=== PATIENT | female | born 1950 | race Caucasian/White ===

== ENCOUNTER 2017-12-06 12:44 | Emergency (ER) | payer OTHER ==
[~2017-12-06] VITALS: Ht 157.5 cm; Wt 93.4 kg
--- NOTE | ~2017-12-06 | EKG ---
[facility] [place] [address] ELECTROCARDIOGRAM REPORT Name: JUNO MOSS Room #: PRE M.R.#: [id number] Admission: Attend Phys: Discharge: Date of : 46 Report #: [id number] THIS REPORT FOR: //name// [facility] ED Test Date: 2017-12-06 Test Time: 13:10:12 Pat Name: JUNO MOSS Department: Room: Gender: F Branch Account Manager: ZAHIRA : 1950 Requested By: Sam Benton Order Number: [id number] MD: Measurements Intervals [place] Rate: 69 P: 39 SC: 130 QRS: 3 QRSD: 97 T: 9 QT: 413 QTc: 443 Interpretive Statements Sinus rhythm Nonspecific T abnormalities, anterior leads No previous ECG available for comparison [email or web address] By: 1310 1310 Annie Valencia MD /EPI
--- NOTE | ~2017-12-06 | EKG ---
[address] [address] [email or web address] [address] ELECTROCARDIOGRAM REPORT Name: JUNO MOSS Room #: DEP JAMES Aguiar#: [id number] Admission: 12/06/17 Attend Phys: Discharge: 12/06/17 Date of : 46 Report #: [id number] THIS REPORT FOR: //name// [facility] ED Test Date: 2017-12-06 Test Time: 13:10:12 Pat Name: JUNO MOSS Department: Room: Gender: F Conference And Event Organiser: TSTORCK : 1950 Requested By: Sam Benton Order Number: [id number] MD: Maikel Omalley Measurements Intervals [place] Rate: 69 P: 39 [place]: 130 QRS: 3 QRSD: 97 T: 9 QT: 413 QTc: 443 Interpretive Statements Sinus rhythm Nonspecific T abnormalities, anterior leads Compared to ECG 10/19/2013 00:07:46 no significant change was found Electronically Signed On 12-06-2017 17:06:32 CDT by Maikel Omalley [email or web address] <ELECTRONICALLY SIGNED> By: Maikel Omalley MD, [facility] 12/06/17 1706 1310 1310 Maikel Omalley MD, FACC /EPI
[~2017-12-06 12:44] MED LIST: ACETAMINOPHEN500 M1 PO; AUGMENTIN 875875 MG PO; FELDENE20 MG PO; GNP HEADACHE P1 EACH PO; IBUPROFEN200 MG PO; MELATONIN1 MG PO; SUDOGEST PE10 MG PO; TRIAMCINOLONE A80 G2
[2017-12-06 13:43] LABS: ABSOLUTE NEUTROPHILS 2.8 thou/uL (1.4-8.2); BASOPHILS 1.2 % (0.0-2.0); EOSINOPHILS 5.3 % (0.0-3.0); HEMATOCRIT 36.9 % (37.0-47.0); HEMOGLOBIN 12.4 gm/dL (12.0-15.0); LYMPHOCYTES 33.6 % (24.0-44.0); MCH 29.2 pg (26.0-34.0); MCHC 33.6 g/dL (28.0-37.0); MCV 86.8 fL (80.0-100.0); MONOCYTES 6.9 % (1.0-8.0); PLATELET COUNT 139 thou/uL (150-400); RBC 4.25 mil/uL (4.20-5.00); RDW 14.2 % (10.5-14.5); WBC 5.4 thou/uL (4.0-11.0)
[2017-12-06] MEDS ORDERED: PAXIL10 MG PO (13:45)
[2017-12-06] MEDS ORDERED: MOBIC15 MG PO (13:45)
[2017-12-06] MEDS ORDERED: WELLBUTRIN XL150 MG PO (13:46)
[2017-12-06 13:47] LABS: ANION GAP 5 mmol/L (7-16); BUN 19 mg/dL (7-18); CALCIUM 8.6 mg/dL (8.5-10.1); CHLORIDE 107 mmol/L (98-107); CO2 28 mmol/L (21-32); GLUCOSE 92 mg/dL (74-106); POTASSIUM 3.9 mmol/L (3.5-5.1); SODIUM 140 mmol/L (136-145)
[2017-12-06 13:56] LABS: TROPONIN-I < 0.04 ng/mL (<0.06)
== END 2017-12-06 15:58 | disposition home or self-care (01) ==
LOC: ER 12:44
PROVIDERS: Emergency Medicine
DX: R07.89 Other chest pain (principal); R60.0 Localized edema; Z90.49 Acquired absence of other specified parts of digestive tract; Z88.1 Allergy status to other antibiotic agents

== ENCOUNTER 2020-04-11 14:57 | Emergency (ER) | payer OTHER ==
[~2020-04-11] VITALS: Ht 160 cm; Wt 90.7 kg
[~2020-04-11 14:57] MED LIST changes: +MOBIC15 MG PO; +PAXIL10 MG PO; +WELLBUTRIN XL150 MG PO
[2020-04-11 16:09] LABS: ABSOLUTE NEUTROPHILS 3.3 thou/uL (1.4-8.2); BASOPHILS 1.4 % (0.0-2.0); EOSINOPHILS 5.2 % (0.0-3.0); HEMATOCRIT 39.7 % (37.0-47.0); HEMOGLOBIN 13.4 gm/dL (12.0-15.0); LYMPHOCYTES 33.1 % (24.0-44.0); MCH 30.1 pg (26.0-34.0); MCHC 33.9 g/dL (28.0-37.0); MCV 88.9 fL (80.0-100.0); MONOCYTES 5.3 % (1.0-8.0); PLATELET COUNT 157 thou/uL (150-400); RBC 4.46 mil/uL (4.20-5.00); RDW 14.2 % (10.5-14.5); WBC 5.9 thou/uL (4.0-11.0)
[2020-04-11 16:14] LABS: ANION GAP 8 mmol/L (7-16); BUN 13 mg/dL (7-18); CALCIUM 8.9 mg/dL (8.5-10.1); CHLORIDE 104 mmol/L (98-107); CO2 30 mmol/L (21-32); CREATININE 1.1 mg/dL (0.6-1.0); GLUCOSE 119 mg/dL (74-106); POTASSIUM 3.6 mmol/L (3.5-5.1); SODIUM 142 mmol/L (136-145)
[2020-04-11 16:20] LABS: ALBUMIN 3.5 g/dL (3.4-5.0); DIRECT BILIRUBIN < 0.1 mg/dL (<0.1-0.2); SGOT 23 U/L (15-37); SGPT 40 U/L (30-65); TOTAL BILIRUBIN 0.6 mg/dL (0.2-1.0); TOTAL PROTEIN 7.3 g/dL (6.4-8.2)
[2020-04-11 19:19] LABS: URINE BILIRUBIN NEGATIVE (Negative); URINE BLOOD NEGATIVE (Negative); URINE CLARITY CLEAR; URINE COLOR YELLOW; URINE GLUCOSE-RANDOM* NEGATIVE (Negative); URINE KETONES NEGATIVE (Negative); URINE LEUKOCYTES-REFLEX NEGATIVE (Negative); URINE NITRITE-REFLEX NEGATIVE (Negative); URINE PROTEIN (DIPSTICK) NEGATIVE (Negative); URINE SPECIFIC GRAVITY 1.015 (1.005-1.035); URINE UROBILINOGEN 0.2 E.U./dl (0.2-1.0)
[2020-04-11 19:58] VITALS: BP 130/73
== END 2020-04-11 20:00 | disposition home or self-care (01) ==
LOC: ER 14:57
PROVIDERS: Emergency Medicine
DX: S06.0X0A Concussion without loss of consciousness, initial encounter (principal); R10.9 Unspecified abdominal pain; R11.2 Nausea with vomiting, unspecified; R42 Dizziness and giddiness; Z90.49 Acquired absence of other specified parts of digestive tract; Z79.899 Other long term (current) drug therapy; Z88.1 Allergy status to other antibiotic agents; W18.09XA Striking against other object with subsequent fall, initial encounter; Y93.89 Activity, other specified; Y92.098 Other place in other non-institutional residence as the place of occurrence of the external cause; Y99.8 Other external cause status

== ENCOUNTER 2020-11-07 15:18 | Emergency (ER) | payer OTHER ==
[~2020-11-07] VITALS: Ht 160 cm; Wt 86.2 kg
[2020-11-07] MEDS ORDERED: WELLBUTRIN XL150 MG PO (15:25)
[2020-11-07] MEDS ORDERED: TRAMADOL100 MG PO (15:25)
[2020-11-07] MEDS ORDERED: PAROXETINE HCL20 MG PO (15:25)
[2020-11-07] MEDS ORDERED: BUPROPION XL300 MG PO (15:31)
[2020-11-07] MEDS ORDERED: ZANAFLEX2 M1 PO (15:33)
[2020-11-07] MEDS ORDERED: TRAMADOL 50 MG50 MG PO (15:33)
[2020-11-07 15:51] LABS: ABSOLUTE NEUTROPHILS 3.5 thou/uL (1.4-8.2); EOSINOPHILS 5.4 % (0.0-3.0); HEMATOCRIT 36.8 % (37.0-47.0); HEMOGLOBIN 12.6 gm/dL (12.0-15.0); LYMPHOCYTES 25.1 % (24.0-44.0); MCH 30.8 pg (26.0-34.0); MCHC 34.1 g/dL (28.0-37.0); MCV 90.1 fL (80.0-100.0); MONOCYTES 8.3 % (1.0-8.0); PLATELET COUNT 148 thou/uL (150-400); POLYS 60.2 % (36.0-66.0); RBC 4.08 mil/uL (4.20-5.00); RDW 13.9 % (10.5-14.5); WBC 5.9 thou/uL (4.0-11.0)
[2020-11-07 15:59] LABS: ANION GAP 7 mmol/L (7-16); BUN 12 mg/dL (7-18); CALCIUM 8.7 mg/dL (8.5-10.1); CHLORIDE 106 mmol/L (98-107); CO2 30 mmol/L (21-32); GLUCOSE 94 mg/dL (74-106); POTASSIUM 3.8 mmol/L (3.5-5.1); SODIUM 143 mmol/L (136-145)
[2020-11-07 16:15] LABS: ALBUMIN 3.6 g/dL (3.4-5.0); SGOT 26 U/L (15-37); SGPT 35 U/L (14-59); TOTAL BILIRUBIN 0.5 mg/dL (0.2-1.0); TOTAL PROTEIN 7.2 g/dL (6.4-8.2); TROPONIN-I <0.06 ng/mL (<0.06)
[2020-11-07] MEDS ORDERED: HYDROCHLOROTH12.5 M1 PO (17:09)
[2020-11-07 17:27] VITALS: BP 167/75
[2020-11-07] MEDS ORDERED: KEFLEX500 M1 PO (17:27)
--- NOTE | 2020-11-08 06:43 | EKG ---
[address] [address] [facility] [place] [address] ELECTROCARDIOGRAM REPORT Name: JUNO MOSS Room #: DEP JAMES Aguiar#: [id number] Admission: 11/07/20 Attend Phys: Discharge: 11/07/20 Date of : 46 Report #: [id number] [facility] ED Test Date: 2020-11-07 Test Time: 15:25:35 Pat Name: JUNO MOSS Department: Room: Gender: F Business Investor: unknown : 1950 Requested By: Aroldo Faulkner Order Number: [id number] MD: Elvin Cueto Measurements Intervals [place] Rate: 63 P: 40 ID: 130 QRS: 11 QRSD: 96 T: 19 QT: 450 QTc: 461 Interpretive Statements Sinus rhythm Nonspecific T abnormalities, anterior leads Compared to ECG 12/06/2017 13:10:12 No significant changes Electronically Signed On 11-08-2020 6:43:19 CDT by Elvin Cueto [email or web address] <ELECTRONICALLY SIGNED> By: Elvin Cueto MD, [facility] 11/08/20 0643 1525 1525 Elvin Cueto MD, FACC /EPI
== END 2020-11-07 18:00 | disposition home or self-care (01) ==
LOC: ER 15:18
PROVIDERS: Emergency Medicine
DX: R03.0 Elevated blood-pressure reading, without diagnosis of hypertension (principal); R79.89 Other specified abnormal findings of blood chemistry; R60.0 Localized edema; Z90.49 Acquired absence of other specified parts of digestive tract; Z88.1 Allergy status to other antibiotic agents; Z79.899 Other long term (current) drug therapy